=== PATIENT | female | born 1995 | race Caucasian/White ===

== ENCOUNTER 2018-06-17 02:48 | Inpatient (IN) | payer BC ==
[2018-06-17] MEDS ORDERED: Nalbuphine* 10 MG/ML 1 ML VIAL IM ONE (04:20)
[2018-06-17] MEDS ORDERED: Promethazine INJ(RESTRICTED)* 25 MG/ML 1 ML VIAL IM ONE (04:20)
[2018-06-17] MEDS ORDERED: Nalbuphine* 10 MG/ML 1 ML VIAL ONE (04:36)
[2018-06-17] MEDS ORDERED: Promethazine INJ(RESTRICTED)* 25 MG/ML 1 ML VIAL ONE (04:36)
[2018-06-17 10:05] LABS: ABS Basophils 0.2 10^3/ul (0-0.2); ABS Eosinophils 0 10^3/ul (0-0.6); ABS Lymphocytes 1.7 10^3/ul (1.0-4.8); ABS Monocytes 0.9 10^3/ul (0-0.8); ABS Neutrophils 13.3 10^3/ul (1.5-7.7); ABS Nucleated RBC 0 10^3/ul; Eosinophil % 0.1 % (0-6); Hematocrit 37 % (35-47); Hemoglobin 12.5 g/dl (12.0-16.0); Lymphocyte % 10.4 % (25-47); Mean Corpuscular HGB Conc 34 g/dl (31-36); Mean Corpuscular Hemoglobin 31 pg (27-31); Mean Corpuscular Volume 92 fL (80-97); Mean Platelet Volume 7.5 um3 (7.4-10.4); Nucleated Red Blood Cells % 0; Platelet Count 272 10^3/ul (150-450); Red Blood Count 4.01 10^6/ul (4.00-5.40); Red Cell Distribution Width 14 % (10.5-15); White Blood Count 16.2 10^3/ul (3.5-10.8)
[2018-06-17] MEDS ORDERED: OBEPIDURAL* 250 ML EPIDURAL ONE (10:53)
[2018-06-17] MEDS: OBEPIDURAL* 250 ML EPIDURAL SCH (11:09)
[2018-06-17] MEDS ORDERED: Phenylephrine IV* 40 MCG/ML 10 ML SYRINGE IV PUSH PRN ×2 (11:22)
[2018-06-17] MEDS ORDERED: EPHEDrine (Pressors)* 50 MG/ML VIAL IV PUSH PRN ×2 (11:22)
[2018-06-17] MEDS ORDERED: Famotidine TAB* 20 MG PO PRN (11:22)
[2018-06-17] MEDS ORDERED: Sodium Citrate/Citric Acid* 15 ML UDC PO PRN (11:22)
[2018-06-17] MEDS ORDERED: Acetaminophen TAB* 325 MG ONE ×2 (14:58→19:15)
[2018-06-17] MEDS: Acetaminophen TAB* 325 MG PO ONE ×2 (15:00→19:15)
[2018-06-17] MEDS ORDERED: Oxytocin in LR* 20 UNITS/1,000 ML BAG IVPB SCH (16:00)
[2018-06-17] MEDS ORDERED: Acetaminophen TAB* 325 MG PO ONE (19:15)
[2018-06-17] MEDS ORDERED: Lidocaine 2% EPI 1:200000 MPF*10-20 ML VIAL ONE ×2 (19:45→23:42)
[2018-06-17] MEDS: Ampicillin IV* 2 GM in NS 0.9% 100 ML* 100 ML IVPB SCH (20:13)
[2018-06-17] MEDS: Gentamicin ADULT (*) 300 MG in NS 0.9% 100 ML* 100 ML IVPB SCH (20:36)
[2018-06-17] MEDS ORDERED: ceFOXitin 2 GM IVPREMIX* 2 GM/50 ML BAG ONE (21:59)
[2018-06-17] MEDS ORDERED: ceFOXitin 2 GM IVPREMIX* 2 GM/50 ML BAG IVPB ONE (22:01)
[2018-06-17] MEDS ORDERED: fentaNYL* 50 MCG/ML 2 ML VIAL (100 MCG VIAL) ONE (22:03)
[2018-06-17] MEDS ORDERED: Morphine PF AMP (0.5MG/ML)* 5 MG/10 ML AMP ONE (22:04)
[2018-06-17] MEDS ORDERED: Midazolam* 1 MG/ML 5 ML VIAL (5 MG) ONE (22:04)
[2018-06-17] MEDS ORDERED: KETAMINE HCL* 50 MG/ML 10 ML VIAL ONE (22:04)
[2018-06-17] MEDS ORDERED: fentaNYL* 50 MCG/ML 2 ML VIAL (100 MCG VIAL) IV PRN (23:26)
[2018-06-17] MEDS ORDERED: Naloxone* 0.4 MG/ML 1 ML VIAL IV PRN ×2 (23:26→23:27)
[2018-06-17] MEDS ORDERED: DiMENhydriNATE IV* 50 MG/ML VIAL IV PUSH PRN (23:27)
[2018-06-17] MEDS ORDERED: Naloxone* 2 MG in NS 0.9% 250 ML* 250 ML IV PRN (23:27)
[2018-06-17] MEDS ORDERED: Ondansetron INJ* 2 MG/ML VIAL IV PRN (23:27)
[2018-06-17] MEDS ORDERED: Nalbuphine* 10 MG/ML 1 ML VIAL IV PRN (23:27)
[2018-06-17] MEDS ORDERED: Scopolamine 1.5 mg* PATCH TRANSDERM PRN (23:27)
[2018-06-17] MEDS ORDERED: PROCHLORPERAZINE INJ 5 MG/ML 2 ML VIAL IV PRN (23:27)
[2018-06-17] MEDS ORDERED: diPHENhydraMINE IV* 50 MG/ML 1 ml VIAL (BENADRYL) IV PRN (23:27)
[2018-06-17] MEDS ORDERED: Scopolamine 1.5 mg* PATCH ONE (23:42)
[2018-06-17] MEDS ORDERED: OXYTOCIN* 10 UNITS/ML 1 ML VIAL ONE ×2 (23:42→23:44)
[2018-06-17] MEDS ORDERED: Phenylephrine INJ* 10 MG/ML 1 ML VIAL (10 MG) ONE (23:42)
[2018-06-17] MEDS ORDERED: PROCHLORPERAZINE INJ 5 MG/ML 2 ML VIAL ONE (23:42)
[2018-06-17] MEDS ORDERED: Lidocaine 2% PF* 10 ML AMP ONE (23:42)
[2018-06-17] MEDS ORDERED: Ketorolac INJ* 30 MG/ML 1 ML VIAL ONE ×2 (23:42→23:44)
[2018-06-17] MEDS ORDERED: EPHEDrine (Pressors)* 50 MG/ML VIAL ONE (23:42)
[2018-06-17] MEDS ORDERED: Dibucaine 1% 28.35 GM TUBE PR PRN (23:56)
[2018-06-17] MEDS ORDERED: Glycerin ADULT SUPP PR PRN (23:56)
[2018-06-17] MEDS ORDERED: Witch Hazel PAD* JAR TOPICAL PRN (23:56)
[2018-06-17] MEDS ORDERED: Zolpidem TAB* 5 MG PO PRN (23:56)
[2018-06-18] MEDS ORDERED: Misoprostol TAB* 200 MCG ONE (00:43)
[2018-06-18] MEDS: Ampicillin IV* 2 GM in NS 0.9% 100 ML* 100 ML IVPB SCH ×4 (02:08→21:01)
--- NOTE | 2018-06-18 07:00 | OP ---
DATE OF OPERATION: 06/17/18 - ROOM #116 DATE OF : 89 SURGEON: Ammy Fierro MD. ASSISTANTS: Dr. Kahn and Candace Tuttle CNM. PRE-OP DIAGNOSIS: Intrauterine gestation at 41 weeks, arrest of dilatation, and maternal intolerance of labor. POST-OP DIAGNOSIS: Intrauterine gestation at 41 weeks, arrest of dilatation, and maternal intolerance of labor. OPERATIVE PROCEDURE: Primary lower transverse section. ESTIMATED BLOOD LOSS: 700 mL. FLUIDS: Crystalloid. FINDINGS: Female infant, weight 9 pounds, Apgars 9 and 9. Normal-appearing uterus, ovaries, and tubes. Normal-appearing placenta. Moderate meconium. COMPLICATIONS: None. COUNTS: All correct. INDICATION: The patient presented for induction of labor, received cervical ripening, and then Pitocin. She progressed to 6 cm dilated and was started on Pitocin several times, so was unable to tolerate increased contractions despite multiple epidural boluses. At one point, there was also tachycardia in the 160s. Maternal temp was 100.3 and she was given Tylenol after that point in time, so she was started on amp and gent. After 8 hours of being 6 cm without the ability to cause adequate contractions, the patient requested a section. The risks were reviewed with her including infection, bleeding, pain, and injury to nearby organs. Consent was signed, and questions were answered. DESCRIPTION OF PROCEDURE: The patient was taken to the operating room where her epidural anesthesia was found to be adequate. She was prepped and draped in the dorsal supine position with a leftward tilt. She already had a Escalante catheter in place and she did have SCDs on her legs. A time-out was performed. A Pfannenstiel skin incision was made with a scalpel carried down to the underlying layer of fascia. The fascia was incised on either side of the midline with the Bovie and the fascial incision extended laterally with sharp dissection. The inferior edge of the fascial incision was grasped with Glenys clamps, tented up, and dissected down with sharp dissection. Then the superior edge of the fascial incision was grasped with Glenys clamps, tented up, and dissected down sharply. The rectus muscles were in the midline and the peritoneum was entered bluntly. A transverse incision was made in the lower uterine segment with the scalpel and the incision was extended superior and inferiorly with blunt pressure. The infant's head was delivered with fundal pressure followed by the shoulders and the rest of the body. After more than 30 seconds, the cord was clamped x2 and cut, and the baby was handed to the issuing operator. Cord blood was collected. The uterus was delivered with fundal massage and gentle cord traction. The uterus was exteriorized and cleared of clots and debris. The uterine incision was closed with 0 Vicryl in a running locked fashion with the second layer of suture imbricating the first. The abdomen was irrigated. The uterus was then placed back into the abdominal cavity. The incision was inspected and with the small amount of cautery, good hemostasis was noted. The peritoneum was closed with 3-0 Vicryl in a running unlocked fashion. The fascia was closed with 0 Vicryl in a running unlocked fashion. Good hemostasis noted in both layers. Then the skin was closed with 4-0 Monocryl in a running subcuticular fashion. The patient was cleaned. Mastisol and Steri-Strips were placed. The incision was dressed. She was moved to the stretcher and taken to the recovery room in stable condition. [id number]/[facility] #: [id number]
[2018-06-18 07:22] LABS: ABS Basophils 0.1 10^3/ul (0-0.2); ABS Eosinophils 0 10^3/ul (0-0.6); ABS Lymphocytes 1.4 10^3/ul (1.0-4.8); ABS Monocytes 1.3 10^3/ul (0-0.8); ABS Neutrophils 15.7 10^3/ul (1.5-7.7); ABS Nucleated RBC 0 10^3/ul; Eosinophil % 0 % (0-6); Hematocrit 28 % (35-47); Hemoglobin 9.9 g/dl (12.0-16.0); Lymphocyte % 7.7 % (25-47); Mean Corpuscular HGB Conc 35 g/dl (31-36); Mean Corpuscular Hemoglobin 32 pg (27-31); Mean Corpuscular Volume 91 fL (80-97); Mean Platelet Volume 7.4 um3 (7.4-10.4); Nucleated Red Blood Cells % 0; Platelet Count 216 10^3/ul (150-450); Red Blood Count 3.08 10^6/ul (4.00-5.40); Red Cell Distribution Width 13 % (10.5-15); White Blood Count 18.5 10^3/ul (3.5-10.8)
--- NOTE | 2018-06-18 07:57 | PN ---
Progress Note - Progress Note Date of Service: 06/18/18 Note: Anesthesia duramorph followup, - NV, good pain control. neuro ok, VSS, s/p CS continue oral meds.
[2018-06-18] MEDS: Simethicone TAB* 80 MG TAB.CHEW PO SCH ×4 (08:24→21:41)
[2018-06-18] MEDS: Docusate CAP* 100 MG PO SCH ×3 (08:24→21:41)
[2018-06-18] MEDS: Ibuprofen TAB* 600 MG PO PRN ×3 (08:39→21:41)
[2018-06-18] MEDS: Ferrous Gluconate TAB* 324 MG TAB PO SCH ×2 (11:20→21:41)
[2018-06-18] MEDS: oxyCODONE/Acetamin 5/325 MG* TAB PO PRN ×2 (11:43→12:11)
[2018-06-18] MEDS ORDERED: Ampicillin IV* 2 GM in NS 0.9% 100 ML* 100 ML IVPB SCH (14:30)
[2018-06-18] MEDS ORDERED: oxyCODONE/Acetamin 5/325 MG* TAB PO PRN (15:25)
[2018-06-18] MEDS ORDERED: Acetaminophen TAB* 325 MG PO PRN (15:25)
[2018-06-18] MEDS: Gentamicin ADULT (*) 300 MG in NS 0.9% 100 ML* 100 ML IVPB SCH (21:29)
[2018-06-19] MEDS: Ibuprofen TAB* 600 MG PO PRN ×3 (03:21→15:18)
[2018-06-19] MEDS: oxyCODONE/Acetamin 5/325 MG* TAB PO PRN ×5 (03:22→20:59)
[2018-06-19] MEDS: Simethicone TAB* 80 MG TAB.CHEW PO SCH ×4 (08:19→20:59)
[2018-06-19] MEDS: Docusate CAP* 100 MG PO SCH ×3 (08:19→20:59)
[2018-06-19] MEDS: Ferrous Gluconate TAB* 324 MG TAB PO SCH ×2 (08:19→20:59)
[2018-06-20] MEDS: Ibuprofen TAB* 600 MG PO PRN (00:26)
[2018-06-20] MEDS: oxyCODONE/Acetamin 5/325 MG* TAB PO PRN (05:11)
[2018-06-20] MEDS: OBEPIDURAL* 250 ML EPIDURAL SCH (07:19)
[2018-06-20] MEDS: Ampicillin IV* 2 GM in NS 0.9% 100 ML* 100 ML IVPB SCH (07:19)
[2018-06-20] MEDS: Ferrous Gluconate TAB* 324 MG TAB PO SCH (08:43)
[2018-06-20] MEDS: Docusate CAP* 100 MG PO SCH (08:43)
[2018-06-20] MEDS: Simethicone TAB* 80 MG TAB.CHEW PO SCH (08:43)
[2018-06-20 08:56] VITALS: BP 109/54
[2018-06-20] MEDS ORDERED: Scopolamine PATCH Remove* 1 NOTE MISC PATCH OFF SCH (23:29)
== END 2018-06-20 09:46 | disposition home or self-care (01) | DRG 540 ==
LOC: MCHOBOUT 02:48 → MCHOB 03:22
PROVIDERS: ADMIT Midwife; ATTEND Midwife
PROC: 3E033VJ Introduction of Other Hormone into Peripheral Vein, Percutaneous Approach (ICD-10-PCS; 2018-06-17)
PROC: 10D00Z1 Extraction of Products of Conception, Low, Open Approach (ICD-10-PCS; principal; 2018-06-17 22:45)
DX: O62.0 Primary inadequate contractions (principal); O75.2 Pyrexia during labor, not elsewhere classified; O48.0 Post-term pregnancy; O77.0 Labor and delivery complicated by meconium in amniotic fluid; O75.81 Maternal exhaustion complicating labor and delivery; O76 Abnormality in fetal heart rate and rhythm complicating labor and delivery; O90.81 Anemia of the puerperium; D64.9 Anemia, unspecified; Z37.0 Single live birth; Z3A.41 41 weeks gestation of pregnancy
CPT/HCPCS: 36415; 84112; 85025; 86850; 86900; 86901; 88307; A9270-GY; J0290; J0694; J0780; J1580; J1885; J2001; J2250; J2300; J2550; J2590; J3010